=== PATIENT | female | born 1995 | race Caucasian/White ===

== ENCOUNTER 2017-01-31 01:31 | Emergency (ER) | payer BC ==
[~2017-01-31] VITALS: Ht 157.5 cm; Wt 57.7 kg
[~2017-01-31 01:31] MED LIST: ALBU1AER9 INH
[2017-01-31 01:34] VITALS: TEMP 37.2; Ht 157.5 cm; Wt 57.7 kg
[2017-01-31] MEDS ORDERED: FLUC200T PO (02:01)
[2017-01-31] MEDS ORDERED: BCPILLS PO (02:01)
[2017-01-31] MEDS ORDERED: MULT1CAP3 PO (02:01)
[2017-01-31] MEDS ORDERED: ALBU18002 INH (02:01)
[2017-01-31] MEDS ORDERED: HYDRAER4 PR (02:06)
[2017-01-31 02:17] VITALS: BP 125/69; PULSE 77; O2SAT 97
--- NOTE | 2017-02-01 01:57 | EMERGENCY ROOM VISIT NOTE ---
History First contact with patient: 01:47 Chief Complaint: RECTAL BLEEDING Stated Complaint: BLOOD IN STOOL Nursing Triage Summary: at bedside with PA for rectal exam. pt c/o bleeding with BM today. soft stools. denies N/V/D. upon inspection, pt has hemmorhoid. History of Present Illness The patient is a 21 year old female who presents to the Emergency Room with complaints of bright red blood in her stool after bowel movements today. The patient states that she has had 3 bowel movements today, all of which have been soft. She states that her symptoms have slowly worsened with each of her last 3 bowel movements. The initial bowel movement had a small amount of blood on the toilet paper, whereas the third and most recent bowel movement was much more significant. The patient reports having several episodes of loose stool over the past few days, but not distinct diarrhea. The patient has not had fever or chills. She does not have chest pain, chest tightness, shortness of breath, or abdominal pain. No vaginal drainage or discharge. No difficulty with urination. She rates her discomfort a 5/10. She does not have a history of inflammatory bowel disease. Review of Systems More than 10 systems were reviewed and otherwise negative with the exception of history of present illness. Past Medical/Surgical History Medical Problems: (1) Asthma Surgical Problems: (1) Hx of tonsillectomy Family History Cancer Hypertension Social History Smoking Status: Never Smoker Alcohol Use: occasionally Marital Status: single Housing Status: lives with friends Occupation Status: [employer] Current/Historical Medications Scheduled Control Pills ( Control Pills), 1 TAB PO DAILY Hydrocortisone/Pramoxine (Proctofoam Hc), 1 APPL W[place] BID Multiple Vitamins W/ Minerals (Womens Multi), 1 CAP PO DAILY Scheduled PRN Albuterol Sulfate (Proair Respiclick), 2 PUFFS INH Q4H PRN for RESCUE/ASTHMA Fluconazole (Diflucan), Unknown Dose PO DAILY PRN for UTI SYMPTOMS Physical Exam Vital Signs Date Time Temp Pulse Resp B/P (MAP) Pulse Ox O2 Delivery O2 Flow Rate FiO2 01/31/17 02:17 77 20 125/69 97 01/31/17 01:34 37.2 79 20 125/69 95 Room Air Physical Exam VITALS: Vitals are noted on the nurse's note and reviewed by myself. Vital signs stable. GENERAL: Well-developed, well-nourished, white female, who is in no acute distress and resting comfortably. Patient is cooperative with the examination. HEAD: Normocephalic atraumatic. MOUTH: Mucous membranes moist. Tonsils are not enlarged. Pharynx without erythema, blood, or exudate. Uvula midline. Airway patent. NECK: Supple without nuchal rigidity. No lymphadenopathy. No thyromegaly. Cervical spine is nontender. HEART: Regular rate and rhythm without murmurs gallops or rubs. LUNGS: Clear to auscultation bilaterally without wheezes, rales or rhonchi. No retractions or accessory muscle use. ABDOMEN: Positive normal bowel sounds x 4. Soft, nontender, without masses or organomegaly. No guarding or rebound tenderness. : Examination was performed in the presence of a female nursing rivet maker. The perirectal space appears without obvious abscess, cellulitis, or fissure. There is obvious irritated hemorrhoid appreciated between 5 and 6:00. This is not thrombosed. Medical Decision & Procedures ED Course Physical exam and history were performed. Nursing notes, EMR, and Medication List were personally reviewed. Patient appears to have several episodes of bright red blood in the toilet after going to the bathroom. On examination she does have a small irritated appearing hemorrhoid. She does not have significant abdominal pain. There is no past history of inflammatory bowel disease and the patient appears otherwise nontoxic. I will treat the patient conservatively with Proctofoam and have her utilize moist or Vaseline with wiping. The patient may also consider a stool softener for the next few days. She is to follow with primary care physician for further Management. She is otherwise limited to the ER with any new, worsening, or concerning symptoms. The chart was completed utilizing [employer] Voice Recognition Software. Grammatical errors, random word insertions, pronoun errors, and incomplete sentences are an occasional consequence of this system due to software limitations, ambient noise, and hardware issues. Any formal questions or concerns about the content, text, or information contained within the body of this dictation should be directly addressed to the provider for clarification. . Medical Decision Differential diagnosis: Etiologies such as diverticulosis, AVM, coagulopathy, colitis, inflammatory bowel disease, malignancy, Veronique-Conklin tear, esophagitis, peptic ulcer disease , variceal bleed, gastritis, epistaxis, fissure, hemorrhoids, as well as others were entertained. Medication Reconcilliation Current Medication List: was personally reviewed by me Blood Pressure Screening Patient's blood pressure: Normal blood pressure Impression Primary Impression: Bleeding hemorrhoid Departure Information Dispostion Home / Self-Care Condition GOOD Prescriptions Hydrocortisone/Pramoxine (Proctofoam Hc) Aer 1 APPL W[place] BID, #10 GM 1 Refill Prov: Jorge Dumont PA-C 01/31/17 Forms HOME CARE DOCUMENTATION FORM, IMPORTANT VISIT INFORMATION Patient Instructions My [facility] Additional Instructions You were seen and evaluated today on an emergency basis only. This is not a substitute for, or an effort to provide, complete comprehensive medical care. It is not possible to recognize and treat all injuries or illnesses in a single emergency department visit. For this reason it is recommended that you followup with your primary care physician if symptoms persist. Use Proctofoam twice daily for the next 7 days. Consider using baby wipes or Vaseline to help with irritation in the area. Consider an [id number] stool softener like Colace for the next few days. This will help with passing of stool and cause less irritation to the area. You are welcome to return to the emergency department anytime with new, worsening, or concerning symptoms.
== END 2017-01-31 02:28 | disposition home or self-care (01) ==
LOC: C.EDB 01:32 → C.EDA 02:28
DX: K64.9 Unspecified hemorrhoids (principal); J45.909 Unspecified asthma, uncomplicated; Z90.89 Acquired absence of other organs; Z82.49 Family history of ischemic heart disease and other diseases of the circulatory system